=== PATIENT | male | born 1995 | race Caucasian/White ===

== ENCOUNTER 2018-04-13 00:52 | Inpatient (IN) | payer OTHER ==
[~2018-04-13] VITALS: Ht 170.2 cm; Wt 65.8 kg
--- NOTE | 2018-04-13 01:12 | ED GENERAL ADULT ---
History of Present Illness General Chief Complaint: Abdominal Pain/Flank Pain Stated Complaint: BIBA, ABD PAIN Source: patient, family Exam Limitations: no limitations Vital Signs & Intake/Output Vital Signs & Intake/Output Vital Signs Date Time Temp Pulse Resp B/P B/P Pulse O2 O2 Flow FiO2 Mean Ox Delivery Rate 04/13 0401 99.7 100 18 123/59 98 Room Air 04/13 0058 98.8 84 20 155/71 95 Room Air Allergies Coded Allergies: amoxicillin (UNKNOWN 04/13/18) Triage Note: BIBA EMS FROM HOME FOR 03/29 ABD PAIN. PT HAS HX OF CROHNS. PER EMS IT HAS BEEN INTERMITTENT SINCE YESTERDAY MORNING AND PT TOOK HIS MEDICAL MARIJUANA WITH NO RELIEF. PT VOMITED X3 PRIOR TO BEING IN EMS CARE. PT C/O 03/29 RLQ AND LLQ ABD PAIN AT THIS TIME. PT ADMITS TO NAUSEA AND VOMITING EARLIER BUT DENIES NAUSEA AT THIS TIME. PT STATES HE HAD A BOWEL MOVEMENT THURSDAY MORNING BUT IT WAS "HARD AND SMALL." PT DENIES ANY OTHER COMPLAINTS. Triage Nurses Notes Reviewed? yes HPI: 23-year-old man with past medical history of Crohn's disease diagnosed 1.5 years ago followed by forensic anthropologist Dr. Fuentes of [place] seen for evaluation of nausea, vomiting, diarrhea over the past 48 hours. Collateral information obtained from patient's father and other family member who report that he has been progressively worsening and appears to be in incredible pain. EMS was contacted and patient was brought to the [place] ED. Presently patient states that his abdomen is in moderate/severe pain and admits to associated fever, chills with some shortness of breath. He otherwise denies any chest pain. (Juan Jose Antonio MD) Past History Travel History Traveled to [place] past 21 day No Medical History Any Pertinent Medical History? see below for history Respiratory: asthma Gastrointestinal: Crohn's disease Surgical History Surgical History: none Psychosocial History What is your primary language Mexican Tobacco Use: Never used Family History Hx Contributory? No (Juan Jose Antonio MD) Review of Systems Review of Systems Constitutional: Reports: see HPI. (Juan Jose Antonio MD) Physical Exam Physical Exam General Appearance: well developed/nourished, no apparent distress, alert, awake , comfortable Comments: General - well developed, thin young man in moderate/severe distress HEENT - NCAT, PERRL, EOMI, anicteric sclera Neck- Supple, no JVD/HJR, no bruits, trachea midline Cardio - S1, S2 w/o murmurs/gallops/rubs; tachycardic Resp - Clear to auscultation bilaterally GI - Soft, severely tender with guarding and rigidity, bowel sounds faint Neuro - Awake and alert, CN II - XII grossly intact Extremities - No edema, pulses intact Skin-cool/clammy and diaphoretic Core Measures ACS in differential dx? No CVA/TIA Diagnosis: No Sepsis Present: No Sepsis Focused Exam Completed? No (Marisela NELSON,Juan Jose) Progress Differential Diagnoses I considered the following diagnoses in my evaluation of the patient: Crohn's flare, bacteremia, sepsis, peritonitis, bowel perforation Plan of Care: Orders Procedure Date/time Status Nothing by Mouth 04/13 B Active LACTIC ACID 04/13 0425 Active Weight 04/13 0406 Active Vital Signs 04/13 040 Active Teach/Educate 04/13 040 Active Pain Treatment and Response 04/13 040 Active Nutritional Intake, Monitor 04/13 0406 Active Isolation 04/13 0406 Active Intake & Output 04/13 0406 Active Patient Care Conference 04/13 0406 Active Activity/Ambulation 04/13 0406 Active Patient Data 04/13 0300 Active Code Status 04/13 0258 Active BLOOD CULTURE 04/13 0134 Active LACTIC ACID 04/13 0125 Complete COMPREHENSIVE METABOLIC PANEL 04/13 0125 Complete CBC WITHOUT DIFFERENTIAL 04/13 0125 Complete Intake & Output 04/13 0058 Active ED Holding Orders 04/13 UNK Active Admit to inpatient 04/13 UNK Active Vital Signs 04/13 UNK Active Current Medications Sig/Hina Start time Last Medication Dose Stop Time Status Admin Hydrocortisone 100 MG Q8 04/13 0600 AC Sodium Succinate (Solucortef) Laboratory Tests 04/13/18 0140: Anion Gap 11, Estimated GFR > 60, BUN/Creatinine Ratio 8.9, Glucose 121 H, Lactic Acid 1.2, Calcium 9.7, Total Bilirubin 0.4, AST 17, ALT 21, Alkaline Phosphatase 61, Total Protein 7.3, Albumin 4.4, Globulin 2.9, Albumin/Globulin Ratio 1.5, CBC w Diff MAN DIFF ORDERED, RBC 5.21, MCV 81.5, MCH 27.2, MCHC 33.4, RDW 14.4, MPV 8.5, Gran % 93.6 H, Lymphocytes % 3.5 L, Monocytes % 2.7, Eosinophils % 0.1, Basophils % 0.1, Absolute Granulocytes 16.3 H, Segmented Neutrophils 96 H, Band Neutrophils 2, Absolute Lymphocytes 0.6 L, Lymphocytes 1 L, Monocytes 1 L, Absolute Monocytes 0.5, Absolute Eosinophils 0, Absolute Basophils 0, Platelet Estimate ADEQUATE, Normochromic RBCs VERIFIED, Poikilocytosis 1+, Ovalocytes 1+, Fld Total RBCs Counted 100 Microbiology 04/132 BLOOD: Blood Culture - RECD 04/13 140 BLOOD: Blood Culture - RECD Initial ED EKG: none Comments: Young man with history of Crohn's disease recently diagnosed within the past 1.5 years previously well controlled on medical marijuana. He apparently was evaluated for biologic agents but was declined by his insurance company. Presently he is in severe distress with severe abdominal pain. Vital signs however are within normal limits. Physical examination demonstrates a young man with cool clammy and diaphoretic skin and a normal cardiopulmonary examination with a severely tender rigid abdomen with guarding. Labs are significant for an elevated WBC count to 17.4 with left shift and normal serum chemistry/lactic acid. CT abdomen/pelvis with IV contrast is ordered with results pending. Patient is medicated with intravenous fluids, antiemetics, and pain medications resulting in mild improvement of his symptoms. Patient's physical examination findings discussed with general surgeon Dr. Bryan Mckoy whose team will evaluate the patient. Clinically patient appears to have a Crohn's flare resulting in his nausea, vomiting, diarrhea and severe abdominal pain. Patient is empirically started on stress dose steroids. He may require intravenous antibiotics. He is being admitted to the general medicine floor for continued intravenous fluids, antiemetics, pain medications, steroids, probable antibiotics, general surgery evaluation, and gastroenterology consultation. (Juan Jose Antonio MD) Departure Departure Disposition: STILL A PATIENT Condition: Stable Referrals: Meche Villafana MD Departure Forms: Customer Survey General Discharge Information Admission Note Spoke With: Juan Jose Interiano MD Documentation of Exam: Documentation of any treatments & extenuating circumstances including Concerns Regarding Discharge (functional status, medication knowledge or non-compliance, living conditions, etc.) that warrant an admission rather than observation: * Intravenous fluids/steroids/probable antibiotic * Antiemetics * Pain medications * General surgery evaluation * Gastroenterology consultation (Juan Jose Antonio MD) Departure Clinical Impression Primary Impression: Crohn disease Qualifiers: Gastrointestinal tract location: unspecified location Digestive disease complication type: with intestinal obstruction Qualified Code: K50.912 - Crohn's disease, unspecified, with intestinal obstruction PA/OXYGEN EQUIPMENT AIDE Co-Sign Statement Statement: ED Attending supervision documentation- x I saw and evaluated the patient. I have also reviewed all the pertinent lab results and diagnostic results. I agree with the findings and the plan of care as documented in the PA's/OXYGEN EQUIPMENT AIDE's documentation. [] I have reviewed the ED Record and agree with the PA's/OXYGEN EQUIPMENT AIDE's documentation. [] Additions or exceptions (if any) to the PAs/OXYGEN EQUIPMENT AIDE's note and plan are summarized below: [] (Chucho NELSON,Ricardo) Critical Care Note Critical Care Note Critical Care Time: 30-74 min (Juan Jose Antonio MD)
[2018-04-13 01:50] LABS: ABSOLUTE BASOPHIL COUNT 0 /CUMM (0.0-0.2); ABSOLUTE EOSINOPHIL COUNT 0 /CUMM (0.0-0.7); ABSOLUTE GRANULOCYTE CT 16.3 /CUMM (1.4-6.5); ABSOLUTE LYMPH COUNT 0.6 /CUMM (1.2-3.4); ABSOLUTE MONOCYTE COUNT 0.5 /CUMM (0.10-0.60); BASOPHIL % 0.1 % (0.0-2.0); EOSINOPHIL % 0.1 % (0-5); GRANULOCYTE % 93.6 % (42.2-75.2); HEMATOCRIT 42.5 % (42-52); MEAN CORPUSCULAR HGB 27.2 PG (27.0-31.0); MEAN CORPUSCULAR HGB CONC 33.4 G/DL (33.0-37.0); MEAN CORPUSCULAR VOLUME 81.5 FL (80.0-94.0); MEAN PLATELET VOLUME 8.5 FL (7.4-10.4); PLATELET COUNT 324 /CUMM (130-400); RBC DISTRIBUTION WIDTH 14.4 % (11.5-14.5); RED BLOOD CELL CT 5.21 /CUMM (4.70-6.10); WHITE BLOOD CELL COUNT 17.4 /CUMM (4.8-10.8)
--- NOTE | 2018-04-13 03:22 | History & Physical ---
Ronn Estrella 04/13/18 0321: General Information and HPI MD Statement: I have seen and personally examined PETRA TILLEY and documented this H&P. The patient is a 23 year old M who presented with a patient stated chief complaint of [Abdominal pain]. Source of Information: patient Exam Limitations: no limitations History of Present Illness: 23-year-old male history of Crohn's disease presenting with abdominal pain in the right lower quadrant. The pain began Thursday night and continued to worsen through Thursday, and started radiating from the right of the right lower quadrant across the midline in the lower quadrants as well as towards the right upper quadrant. The pain is described as a constant dull pain, but is sharp with movement. The patient became nauseous Thursday night and vomited 3 times, nonbloody. He is also reporting chills and subjective fevermeasured at home to be 99.5 degrees. He denied bright red blood per rectum or diarrhea, but reports constipation, most recently passing a hard a hard pellet like stool Thursday, whereas he usually has 3-4 bowel movements per day. He denied chest pain, lightheadedness, dizziness, shortness of breath or recent trauma to the abdomen. The patient has never been hospitalized for Crohn's disease before, never had any surgical procedures, usually controls his flareups with medical marijuana, has tried steroids in the past with resultant migraines, and tried to be put on a biologic agent but his insurance denied it since he had not failed Humira yet. 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 His girlfriend a was present in the room , and she began vomiting herself after the history was taken. As stated, the patient smokes medical marijuana, but denies tobacco use, rarely drinks alcohol, and denies illicit drug use Allergies/Medications Allergies: Coded Allergies: amoxicillin (UNKNOWN 04/13/18) Past History Travel History Traveled to [place] past 21 day No Medical History Respiratory: asthma Gastrointestinal: Crohn's disease Surgical History Surgical History: none Review of Systems Review of Systems Constitutional: Reports: chills, fever. Denies: weakness. Cardiovascular: Reports: palpitations. Denies: chest pain, orthopena, peripheral edema. Respiratory: Denies: cough, orthopnea, short of breath. GI: Reports: abdominal pain, constipation, nausea, vomiting. Denies: diarrhea, melena, bloody stool. Genitourinary: Denies: dysuria, hematuria, pain. Exam & Diagnostic Data Last 24 Hrs of Vital Signs/I&O Vital Signs Date Time Temp Pulse Resp B/P B/P Pulse O2 O2 Flow FiO2 Mean Ox Delivery Rate 04/13 0601 99.3 04/13 0421 99.5 90 22 158/60 93 Room Air 04/13 0401 99.7 100 18 123/59 98 Room Air 04/13 0058 98.8 84 20 155/71 95 Room Air Intake & Output 04/13 0800 04/13 0000 04/12 1600 Intake Total 1150 Output Total Balance 1150 Intake, IV 1150 Intake, Oral 0 Patient 65.771 kg Weight Weight Bed scale Measurement Method Physical Exam General Appearance Alert, Oriented X3, Cooperative, No Acute Distress HEENT Atraumatic, EOMI Cardiovascular Regular Rate, Normal S1, Normal S2, No Murmurs Lungs Clear to Auscultation, Normal Air Movement Abdomen Bowel sounds hypoactive, Profoundly tender to palpation in the RLQ Extremities No Clubbing, No Cyanosis, No Edema, Normal Pulses Last 24 Hrs of Labs/Michael: Laboratory Tests 04/13/18 0140: Anion Gap 11, Estimated GFR > 60, BUN/Creatinine Ratio 8.9, Glucose 121 H, Lactic Acid 1.2, Calcium 9.7, Total Bilirubin 0.4, AST 17, ALT 21, Alkaline Phosphatase 61, Total Protein 7.3, Albumin 4.4, Globulin 2.9, Albumin/Globulin Ratio 1.5, CBC w Diff MAN DIFF ORDERED, RBC 5.21, MCV 81.5, MCH 27.2, MCHC 33.4, RDW 14.4, MPV 8.5, Gran % 93.6 H, Lymphocytes % 3.5 L, Monocytes % 2.7, Eosinophils % 0.1, Basophils % 0.1, Absolute Granulocytes 16.3 H, Segmented Neutrophils 96 H, Band Neutrophils 2, Absolute Lymphocytes 0.6 L, Lymphocytes 1 L, Monocytes 1 L, Absolute Monocytes 0.5, Absolute Eosinophils 0, Absolute Basophils 0, Platelet Estimate ADEQUATE, Normochromic RBCs VERIFIED, Poikilocytosis 1+, Ovalocytes 1+, Fld Total RBCs Counted 100 Microbiology 04/13 0514 STOOL: Stool Culture - COLB 04/13 222 BLOOD: Blood Culture - RECD 04/13 0140 BLOOD: Blood Culture - RECD Assessment/Plan Assessment: 23-year-old male with a history of Crohn's disease presenting with acute flare of Crohn's. Patient has a leukocytosis of 17.4 with corresponding left shift. Possibly from inflammation secondary to Crohn's versus infectious. CT Abd/Pelvis: Multifocal segments of wall thickening involving the small bowel, particularly the terminal ileum, in keeping with active inflammatory bowel disease. Loops of gas and fluid-filled small bowel in the midabdomen may reflect a partial mechanical obstruction in the setting of possible underlying fibrostenosis. Problems: 1. Acute flareup of Crohn's disease Plan: ceftriaxone and metronidazole Full code As Ranked By This Provider Problem List: 1. Crohn disease Qualifiers Gastrointestinal tract location: unspecified location Digestive disease complication type: with intestinal obstruction Qualified Code: K50.912 - Crohn's disease, unspecified, with intestinal obstruction Core Measures/Misc (04/05) Acute Coronary Syndrome ACS Diagnosis: No Congestive Heart Failure Congestive Heart Failure Diagnosis No Cerebrovascular Accident CVA/TIA Diagnosis: No VTE (View Protocol) VTE Risk Factors No risk factors No Mechanical VTE Prophylaxis d/t N/A MechProphylax Ordered No VTE Pharm Prophylaxis d/t LowRisk-No Interven Req'd Sepsis (View protocol) Sepsis Present: No If YES complete Sepsis Event Note If YES complete Sepsis Event Note Juan Jose Interiano MD 04/13/18 0502: Core Measures/Misc (04/05) Sepsis (View protocol) If YES complete Sepsis Event Note If YES complete Sepsis Event Note Attending MD Review Statement Attending Statement Attending MD Statement: examined this patient, discuss w/resident/PA/PLUSH DRESSER, agreed w/resident/PA/PLUSH DRESSER Attending Assessment/Plan: Patient is seen and examined independently by me. Care plan discussed with biomedical specialist and/or resident. I agree with the physical exam findings and plan of care as outlined above with the following changes and additions. 23 yo male with history of Crohn's diagnosed about 1.5 years ago presented with lower abdominal pain for 2 days. Patient states he had pain below umbilicus which radiates bilaterally and rectally. He has nausea with non bloody vomiting x3. He has no diarrhea. Last BM on 04/12 with small amount of non bloody firm stool. T max 99.5 at home. He has moderate to severe abdominal pain earlier in the ED and got Dilaudid 1 mg IV. On my abdominal exam, he has decreased bowel sound, soft, no distension, mild tenderness in RUQ/RLQ/LLQ (worse in RLQ) with no rebound or guarding. WBC 17.4. Lactic acid 1.2. CT abdomen and pelvis shows multifocal segments of wall thickening of small bowel and terminal ileum with partial SBO. Patient is admitted to inpatient to [facility] for acute exacerbation of Crohn's with partial SBO and terminal ileitis. NPO. IV hydration. Start solumedrol. IV antibiotic. Pain control. Check blood and stool cultures. Surgery consult. GI consult. Signed: MD KOLE Carter MD,Porsche 04/13/18 0534: Core Measures/Misc (04/05) Sepsis (View protocol) If YES complete Sepsis Event Note If YES complete Sepsis Event Note Resident Review Statement Resident Statement: examined this patient, discussed with internal controls manager, agreed with internal controls manager, reviewed EMR data (avail), amended to note Other Findings: Patient is an 23-year-old male with past medical history significant of Crohn's diagnosed 1-1/2 years ago currently following with Dr. Fuentes presenting with chief complaint of abdominal pain. Patient reports that on Thursday, April 11 he started experiencing significant lower abdominal pain which was not responding to medical marijuana. Reports that the next day he continued to have worsening lower abdominal pain which was unbearable and at approximately 9 PM on day of admission he had 3 episodes of nonbloody emesis. Patient reports that his abdominal pain is located below the umbilicus close to the right lower quadrant which radiates outwards. Describes it as a constant dull ache with occasional sharp shooting pain that worsens with movement. Patient rates the pain as worse and 9 out of 10 which improved with Dilaudid. Patient reports a one-day history of constipation with his last bowel movement the morning before admission. Describes stool as "hard palates". Denies bright red blood or melena. Describes the stool was dark brown/greenish color. Patient reports that he is normally regular and has multiple bowel movements throughout the day. Patient reports a fever of 99.5 along with chills and palpitations. Denies any chest pain, shortness breath, dizziness, lightheadedness, dysuria/hematuria. Patient reports that he was recently diagnosed with Crohn's. Denies any previous hospitalizations. Reports that he has had prednisone in the past however did not continue due to migraines. Patient's insurance recently denied Entyvio as he has not failed/attempted Humira. Past medical history: Childhood asthma, Crohn's Past surgical history: None Social history: Denies tobacco use, occasional alcohol use, uses marijuana, denies any illicit drug use, is in ninth grade[employer] grad[employer] and reports sick contacts Allergies: Amoxicillin- rash Medications: CBD, vitamin B, vitamin D, calcium, probiotic, multivitamin, cumin supplement On admission: Vitals: MAXIMUM TEMPERATURE 99.7, heart rate 84-100, respiration rate 18-22, blood pressure 158/60, saturating between 93-98% on room air Physical exam as above Labs: Significant for white count of 17.4 with 93.6% granulocytes, H&H 14.2 and 42.5, platelets 324, chemistry unremarkable except for a glucose of 121 Imaging: CT abdomen and pelvis with contrast shows multifocal segment of wall thickening involving the small bowel fistula site that terminal ileum with findings consistent for IVD. Loops of gas and fluid-filled small bowel and the abdomen may represent a partial mechanical obstruction in setting of possible underlying fibrous stenosis. Pelvic free fluid present. Bilateral scrotal hydroceles. Patient is a 23-year-old male with past medical history significant for Crohn's currently not on immunosuppressive therapy presenting this admission with findings consistent for Crohn's flare and also possible obstruction due to the Crohn's. Patient in the ED he received IV Dilaudid, IV Zofran, 1 L normal saline bolus. Problems: Crohn's flare Partial mechanical obstruction secondary to Crohn's Plan: Admit to general med Nothing by mouth with IV fluids Continue IV Solu-Medrol 20 mg 3 times a day Start IV antibiotics - IV Flagyl, prior to starting ceftriaxone please clarify severity of allergy to amoxicillin Obtain stool cultures Follow-up blood cultures Surgery consult that in the ED for SBO GI consult placed Pain control: With IV Tylenol and Dilaudid Code: Full code Diet: Nothing by mouth DVT prophylaxis: Alps only
--- NOTE | 2018-04-13 03:45 | CT SCAN REPORT ---
EXAMINATION: CT ABDOMEN AND PELVIS WITH CONTRAST CLINICAL INFORMATION: Crohn's flare COMPARISON: None TECHNIQUE: Multidetector volumetric imaging was performed of the abdomen and pelvis following IV administration of 95 mL of Optiray 320 intravenous contrast. Sagittal and coronal reformatted images were obtained on the technologist's workstation. DLP: 286 mGy-cm FINDINGS: LUNG BASES: The visualized lung bases are unremarkable. LIVER, GALLBLADDER, AND BILIARY TREE: The liver is normal in size, shape, and attenuation. No focal hepatic lesion or biliary ductal dilatation is present. The gallbladder is unremarkable with no evidence of radiopaque gallstones, gallbladder wall thickening, or obvious pericholecystic inflammatory changes. PANCREAS: No focal lesions. SPLEEN: Unremarkable. ADRENAL GLANDS: Unremarkable. KIDNEYS AND URETERS: 9 mm hypodensity in the right renal midpole is too small to characterize. An additional cortical based 4 mm hypodensity in the posterior left renal midpole is too small to characterize. No evidence of nephrolithiasis. No evidence of hydronephrosis. Bilateral kidneys are within normal limits for size and contour.. BLADDER: Unremarkable. GASTROINTESTINAL TRACT: There is a segment of wall thickening and mucosal hyperenhancement involving the terminal ileum. Mildly thickened loops of bowel are also seen in the left hemiabdomen, nonspecific in the setting of underdistention. There is fluid and gas-filled distention of multiple small bowel loops in the midabdomen with associated mucosal enhancement, though no significant wall thickening. The large bowel is relatively decompressed, containing stool. There is moderate free fluid within the pelvis. ABDOMINAL WALL: No significant hernia is appreciated. LYMPH NODES: Normal. VASCULAR: Unremarkable. PELVIC VISCERA: Pelvic free fluid noted, as detailed above. Bilateral hydroceles noted. OSSEOUS STRUCTURES: Mild irregularity involving the L1-L2 endplates. No significant degenerative changes involving the lumbar spine. IMPRESSION: Multifocal segments of wall thickening involving the small bowel, particularly the terminal ileum, in keeping with active inflammatory bowel disease. Loops of gas and fluid-filled small bowel in the midabdomen may reflect a partial mechanical obstruction in the setting of possible underlying fibrostenosis. Pelvic free fluid. Bilateral scrotal hydroceles.
[2018-04-13 04:21] VITALS: BP 158/60
--- NOTE | 2018-04-13 07:06 | Cons- General Surgery ---
General Information and HPI Consulting Request Date of Consult: 04/13/18 Requested By: Juan Jose Interiano MD History of Present Illness: This is a healthy 23-year-old male who presents to the medical service with Crohn's exacerbation. Patient is known to have Crohn's disease from prior workup. Approximately 1 year ago he was noted to be iron deficient for which endoscopic evaluation was undertaken. Colonoscopy findings were concerning for Crohn's disease, which was consists firmed with CT scan of the abdomen pelvis. Patient was arranged to undergo medical treatment by his adjunct history instructor. Patient elected to go to [facility] for second opinion. A different biologic medicine was arranged but not covered by his insurance. He declined medical treatment and has managed without treatment. The past 2 days prior to admission he experienced severe suprapubic and right lower quadrant progressive abdominal pain associated with nausea and profuse vomiting. Since being admitted to the hospital and treated for Crohn's flare, his symptoms have improved such that he can move around a little bit more easy. He denies any further nausea or vomiting but also denies bowel function. Allergies/Medications Allergies: Coded Allergies: amoxicillin (UNKNOWN 04/13/18) Current Medications: Current Medications Sig/Hina Start time Last Medication Dose Route Stop Time Status Admin Acetaminophen 1,000 MG Q6P PRN 04/13 0515 AC 04/13 IV 0808 Ceftriaxone Sodium 1,000 MG Q24H 04/13 1100 AC IV Ceftriaxone Sodium 1,000 MG DAILY 04/13 0900 CAN IV Ciprofloxacin 400 MG Q12 04/13 1030 DC Dextrose/Water 200 ML IV Dextrose/Sodium 1,000 ML Q13H 04/13 0715 AC 04/13 Chloride IV 0808 Dextrose/Water 1,000 ML .[id number] 04/13 0515 DC 04/13 IV 0552 Hydrocortisone 100 MG Q8 04/13 0600 CAN Sodium Succinate IV Hydromorphone HCl 0.5 MG Q4P PRN 04/13 0515 AC 04/13 IV 1142 Hydromorphone HCl 0 .STK-MED ONE 04/13 0247 DC .ROUTE Hydromorphone HCl 1 MG ONCE ONE 04/13 0230 DC 04/13 IV 04/13 0231 0230 Hydromorphone HCl 0 .STK-MED ONE 04/13 0153 DC .ROUTE Hydromorphone HCl 0.6 MG ONCE ONE 04/13 0145 DC 04/13 IV 04/13 0146 0155 Influenza Virus 0.5 ML ONCE ONE 04/13 09 DC Vaccine IM 04/13 09 Methylprednisolone 20 MG Q8 04/13 06 AC 04/13 IV 0546 Metronidazole 500 MG IQ8 04/13 0800 AC 04/13 N/A 1 UNIT IV 0808 Ondansetron HCl 0 .STK-MED ONE 04/13 0152 DC .ROUTE Ondansetron HCl 4 MG ONCE ONE 04/13 0145 DC 04/13 IV 04/13 0146 0155 Sodium Chloride 1,000 ML BOLUS ONE 04/13 014 DC 04/13 IV 04/13 0244 0155 Past History Medical History Blood Transfusion Hx: No Neurological: NONE EENT: NONE Cardiovascular: NONE Respiratory: asthma Gastrointestinal: Crohn's disease Hepatic: NONE Renal: NONE Musculoskeletal: NONE Psychiatric: NONE Endocrine: NONE Blood Disorders: NONE Cancer(s): 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 No exertional dyspnea. Abdominal pain per HPI. Nausea vomiting per HPI. No bowel function. No dysuria. Muscle skeletal negative remainder 12 points negative Exam & Diagnostic Data Vital Signs and I&O Vital Signs Date Time Temp Pulse Resp B/P B/P Pulse O2 O2 Flow FiO2 Mean Ox Delivery Rate 04/13 0601 99.3 04/13 0421 99.5 90 22 158/60 93 Room Air 04/13 0401 99.7 100 18 123/59 98 Room Air 04/13 0058 98.8 84 20 155/71 95 Room Air Intake & Output 04/13 0804/13 0000 04/12 1600 04/12 0804/12 0000 04/11 1600 Intake Total 1150 Output Total Balance 1150 Intake, IV 1150 Intake, Oral 0 Patient 145 lb Weight Weight Bed scale Measurement Method Physical Exam: General: He looks his stated age thin habitus no distress HEENT: Anicteric PERRLA EOMI Neck: Supple no adenopathy no JVD Chest: Normal respiratory excursion and effort. Nontender no crepitus Abdomen: Flat, tender suprapubic region with involuntary focal guarding. No hernia no mass Extremities: No cyanosis clubbing or edema Last 24 Hours of Labs: Laboratory Tests 04/13 0140 Chemistry Sodium (137 - 145 mmol/L) 139 Potassium (3.5 - 5.1 mmol/L) 4.5 Chloride (98 - 107 mmol/L) 100 Carbon Dioxide (22 - 30 mmol/L) 28 Anion Gap (5 - 16) 11 BUN (9 - 20 mg/dL) 8 L Creatinine (0.7 - 1.2 mg/dL) 0.9 Estimated GFR (>60 ml/min) > 60 BUN/Creatinine Ratio (7 - 25 %) 8.9 Glucose (65 - 99 mg/dL) 121 H Lactic Acid (0.7 - 2.1 mmol/L) 1.2 Calcium (8.4 - 10.2 mg/dL) 9.7 Total Bilirubin (0.2 - 1.3 mg/dL) 0.4 AST (17 - 59 U/L) 17 ALT (21 - 72 U/L) 21 Alkaline Phosphatase (< 127 U/L) 61 Total Protein (6.3 - 8.2 g/dL) 7.3 Albumin (3.5 - 5.0 g/dL) 4.4 Globulin (1.9 - 4.2 gm/dL) 2.9 Albumin/Globulin Ratio (1.1 - 2.2 %) 1.5 Hematology CBC w Diff MAN DIFF ORDERED WBC (4.8 - 10.8 /CUMM) 17.4 H RBC (4.70 - 6.10 /CUMM) 5.21 Hgb (14.0 - 18.0 G/DL) 14.2 Hct (42 - 52 %) 42.5 MCV (80.0 - 94.0 FL) 81.5 MCH (27.0 - 31.0 PG) 27.2 MCHC (33.0 - 37.0 G/DL) 33.4 RDW (11.5 - 14.5 %) 14.4 Plt Count (130 - 400 /CUMM) 324 MPV (7.4 - 10.4 FL) 8.5 Gran % (42.2 - 75.2 %) 93.6 H Lymphocytes % (20.5 - 51.1 %) 3.5 L Monocytes % (1.7 - 9.3 %) 2.7 Eosinophils % (0 - 5 %) 0.1 Basophils % (0.0 - 2.0 %) 0.1 Absolute Granulocytes (1.4 - 6.5 /CUMM) 16.3 H Segmented Neutrophils (42.2 - 75.2 %) 96 H Band Neutrophils (0.0 - 5.0 %) 2 Absolute Lymphocytes (1.2 - 3.4 /CUMM) 0.6 L Lymphocytes (20.5 - 51.1 %) 1 L Monocytes (1.7 - 9.3 %) 1 L Absolute Monocytes (0.10 - 0.60 /CUMM) 0.5 Absolute Eosinophils (0.0 - 0.7 /CUMM) 0 Absolute Basophils (0.0 - 0.2 /CUMM) 0 Platelet Estimate (ADEQUATE) ADEQUATE Normochromic RBCs VERIFIED Poikilocytosis 1+ Ovalocytes 1+ Other Body Source Fld Total RBCs Counted (%) 100 Imaging Results: CT scan images were personally reviewed. The findings show focal segment of terminal ileum with severe inflammatory changes. There is mild small bowel dilatation proximal to this. Dilated loops of bowel are without inflammatory changes. No free fluid no free air no hernia no mass Assessment/Plan Assessment/Plan This is a healthy 23-year-old male with Crohn's exacerbation. There is associated partial small bowel obstruction, likely related to luminal edema from his active inflammatory process. I do not feel that surgical intervention is necessary. Most often, these partial obstructive symptoms will resolve with medical management of his Crohn's disease. For now keep him nothing by mouth until he has return of bowel function. When that occurs she can be started on a liquid diet and progress as tolerated. I will defer management to gastroenterology. Problem List: 1. Crohn disease 2. SBO (small bowel obstruction) Copies To: Gina NELSON,Santhosh; Sergio Rice MD Consult Acknowledgment - Thank you for your consult request.
[2018-04-13 08:16] LABS: PTT 25 SEC (25-37)
[2018-04-13 08:30] LABS: ABSOLUTE BASOPHIL COUNT 0 /CUMM (0.0-0.2); ABSOLUTE EOSINOPHIL COUNT 0 /CUMM (0.0-0.7); ABSOLUTE GRANULOCYTE CT 20.7 /CUMM (1.4-6.5); ABSOLUTE LYMPH COUNT 0.3 /CUMM (1.2-3.4); ABSOLUTE MONOCYTE COUNT 0.5 /CUMM (0.10-0.60); BASOPHIL % 0 % (0.0-2.0); EOSINOPHIL % 0 % (0-5); GRANULOCYTE % 96.3 % (42.2-75.2); HEMATOCRIT 37.9 % (42-52); MEAN CORPUSCULAR HGB 27.5 PG (27.0-31.0); MEAN CORPUSCULAR HGB CONC 33.8 G/DL (33.0-37.0); MEAN CORPUSCULAR VOLUME 81.6 FL (80.0-94.0); PLATELET COUNT 276 /CUMM (130-400); RBC DISTRIBUTION WIDTH 14.2 % (11.5-14.5); RED BLOOD CELL CT 4.64 /CUMM (4.70-6.10); WHITE BLOOD CELL COUNT 21.5 /CUMM (4.8-10.8)
--- NOTE | 2018-04-13 08:30 | Cons- Gastroenterology ---
General Information and HPI Consulting Request Date of Consult: 04/13/18 Requested By: Marco Antonio Ruvalcaba MD Reason for Consult: Abdominal pain in a pt with a history of crohns disease. Abnormal ct scan consistent with a flare of crohns disease. Source of Information: patient Exam Limitations: no limitations History of Present Illness: Mr. Parker is a 23 year old male with a history of crohns disease who presented to last night with complaints of worsening abdominal pain associated with nausea and vomiting. He had been having some worsening abdominal pain over the past 2 days and he notes that last night he developed servere lower abdominal pain more severe from pain he has experienced prior. He had some bilious vomiting with the pain, but no hematemesis. He also reports that he has normal bowel movements without any rectal bleeding or diarrhea and he has not had any recent change in his bowel habits. He has been afebrile. He has been on budesonide in the past for his crohns, but he currently only takes medical marijuana. He apparently has been approved for humira, but he hasn't yet starting it noting that he wanted to be started on entyvio because of the side effect profile. He has also not been on systemic steroids in the past. In the ER he was hemodynamically stable and afebrile. He had a ct scan that showed bowel wall inflammation consistent with a flare of his crohns disease. He was admitted to the medical service and started on IV antibiotics and IV solumederol and has noted a marked improvement in his pain today. He has been kept NPO and has not had any further vomiting since being admitted. Allergies/Medications Allergies: Coded Allergies: Milk Containing Products (Mild, DIARRHEA 04/14/18) gluten (Mild, ABDOMINAL CRAMPING 04/14/18) amoxicillin (UNKNOWN 04/13/18) lactase (From DAIRY AID) (Mild, GI DISTRESS 04/14/18) Home Med List: Cholecalciferol (Vitamin D3) (Vitamin D) 1,000 UNIT TABLET 1 TAB PO DAILY VITAMIN SUPPORT (Reported) Cyanocobalamin (Vitamin B-12) 1,000 MCG TABLET 1 TAB PO DAILY VITAMIN SUPPORT (Reported) Ferrous Sulfate 325 MG (65 MG IRON) TABLET 1 TAB PO DAILY IRON, VITAMIN ( Reported) [MEDICAL MARIJUANA] (Reported) Prednisone 10 MG TABLET 5 TAB PO DAILY PRN CROHN'S DISEASE 5 PILLS FOR 7 DAYS 4 PILLS FOR 7 DAYS 3 PILLS FOR 7 DAYS 2 PILLS FOR 7 DAYS 1 PILL FOR 7 DAYS Current Medications: Current Medications Sig/Hina Start time Last Medication Dose Route Stop Time Status Admin Acetaminophen 1,000 MG Q6P PRN 04/13 0515 AC 04/13 IV 0808 Ceftriaxone Sodium 1,000 MG DAILY 04/13 900 CAN IV Dextrose/Sodium 1,000 ML Q13H 04/13 0715 AC 04/13 Chloride IV 08 Dextrose/Water 1,000 ML .[id number] 04/13 0515 DC 04/13 IV 0552 Hydrocortisone 100 MG Q8 04/13 600 CAN Sodium Succinate IV Hydromorphone HCl 0.5 MG Q4P PRN 04/13 0515 AC 04/13 IV 0545 Hydromorphone HCl 0 .STK-MED ONE 04/13 0247 DC .ROUTE Hydromorphone HCl 1 MG ONCE ONE 04/13 0230 DC 04/13 IV 04/13 0231 0230 Hydromorphone HCl 0 .STK-MED ONE 04/13 0153 DC .ROUTE Hydromorphone HCl 0.6 MG ONCE ONE 04/13 0145 DC 04/13 IV 04/13 0146 0155 Influenza Virus 0.5 ML ONCE ONE 04/13 900 AC Vaccine IM 04/13 09 Methylprednisolone 20 MG Q8 04/13 06 AC 04/13 IV 0546 Metronidazole 500 MG IQ8 04/13 08 AC 04/13 N/A 1 UNIT IV 08 Ondansetron HCl 0 .STK-MED ONE 04/13 0152 DC .ROUTE Ondansetron HCl 4 MG ONCE ONE 04/13 0145 DC 04/13 IV 04/13 0146 0155 Sodium Chloride 1,000 ML BOLUS ONE 04/13 0145 DC 04/13 IV 04/13 0244 0155 Past History Travel History Traveled to [place] past 21 day No Medical History Blood Transfusion Hx: No Neurological: NONE EENT: NONE Cardiovascular: NONE Respiratory: asthma Gastrointestinal: Crohn's disease Hepatic: NONE Renal: NONE Musculoskeletal: NONE Psychiatric: NONE Endocrine: NONE Blood Disorders: NONE Cancer(s): 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 Home Services at Home: None Smoking Status: Never Smoked Review of Systems Review of Systems Constitutional: Denies: fever, malaise, weakness, unexplained weight loss. EENTM: Reports: visual changes, ear redness. Cardiovascular: Denies: no symptoms. Respiratory: Denies: no symptoms. GI: Reports: see HPI. Genitourinary: Denies: no symptoms. Musculoskeletal: Denies: no symptoms, joint pain, joint swelling. Skin: Denies: no symptoms, rash. Neurological/Psychological: Denies: no symptoms. Hematologic/Endocrine: Denies: no symptoms. Immunologic/Allergic: Denies: no symptoms. All Other Systems: Reviewed and Negative Exam & Diagnostic Data Vital Signs and I&O Vital Signs Date Time Temp Pulse Resp B/P B/P Pulse O2 O2 Flow FiO2 Mean Ox Delivery Rate 04/13 0601 99.3 04/13 0421 99.5 90 22 158/60 93 Room Air 04/13 0401 99.7 100 18 123/59 98 Room Air 04/13 0058 98.8 84 20 155/71 95 Room Air Intake & Output 04/13 1600 04/13 0400 04/12 1600 04/12 0400 04/11 1600 04/11 0400 Intake Total 150 1000 Output Total Balance 150 1000 Intake, IV 150 1000 Intake, Oral 0 Patient 145 lb 145 lb Weight Weight Bed scale Reported by Patient Measurement Method Physical Exam General Appearance: well developed/nourished, no apparent distress, alert, comfortable Head: atraumatic, normal appearance Eyes: Bilateral: normal appearance. Ears, Nose, Throat: normal pharynx, normal ENT inspection, hearing grossly normal Neck: normal inspection, supple, full range of motion Respiratory: normal breath sounds, chest non-tender, no respiratory distress, quiet respiration Cardiovascular: regular rate/rhythm Gastrointestinal: normal bowel sounds, soft, tenderness, no peritoneal signs Rectal: deferred Back: normal inspection, normal range of motion Extremities: normal inspection, normal range of motion, no edema Neurologic/Psych: no motor/sensory deficits, awake, alert, oriented x 3 Skin: intact, normal color, warm/dry Results Pertinent Lab Results: Laboratory Tests 04/13 04/13 0650 0140 Chemistry Sodium (137 - 145 mmol/L) 139 Potassium (3.5 - 5.1 mmol/L) 4.5 Chloride (98 - 107 mmol/L) 100 Carbon Dioxide (22 - 30 mmol/L) 28 Anion Gap (5 - 16) 11 BUN (9 - 20 mg/dL) 8 L Creatinine (0.7 - 1.2 mg/dL) 0.9 Estimated GFR (>60 ml/min) > 60 BUN/Creatinine Ratio (7 - 25 %) 8.9 Glucose (65 - 99 mg/dL) 121 H Lactic Acid (0.7 - 2.1 mmol/L) Pending 1.2 Calcium (8.4 - 10.2 mg/dL) 9.7 Total Bilirubin (0.2 - 1.3 mg/dL) 0.4 AST (17 - 59 U/L) 17 ALT (21 - 72 U/L) 21 Alkaline Phosphatase (< 127 U/L) 61 Total Protein (6.3 - 8.2 g/dL) 7.3 Albumin (3.5 - 5.0 g/dL) 4.4 Globulin (1.9 - 4.2 gm/dL) 2.9 Albumin/Globulin Ratio (1.1 - 2.2 %) 1.5 Coagulation PT (9.4 - 12.5 SEC) 16.0 H INR (0.90 - 1.17) 1.46 H APTT (25 - 37 SEC) 25 Hematology CBC w Diff Pending MAN DIFF ORDERED WBC (4.8 - 10.8 /CUMM) Pending 17.4 H RBC (4.70 - 6.10 /CUMM) Pending 5.21 Hgb (14.0 - 18.0 G/DL) Pending 14.2 Hct (42 - 52 %) Pending 42.5 MCV (80.0 - 94.0 FL) Pending 81.5 MCH (27.0 - 31.0 PG) Pending 27.2 MCHC (33.0 - 37.0 G/DL) Pending 33.4 RDW (11.5 - 14.5 %) Pending 14.4 Plt Count (130 - 400 /CUMM) Pending 324 MPV (7.4 - 10.4 FL) Pending 8.5 Gran % (42.2 - 75.2 %) 93.6 H Lymphocytes % (20.5 - 51.1 %) 3.5 L Monocytes % (1.7 - 9.3 %) 2.7 Eosinophils % (0 - 5 %) 0.1 Basophils % (0.0 - 2.0 %) 0.1 Absolute Granulocytes (1.4 - 6.5 /CUMM) 16.3 H Segmented Neutrophils (42.2 - 75.2 %) 96 H Band Neutrophils (0.0 - 5.0 %) 2 Absolute Lymphocytes (1.2 - 3.4 /CUMM) 0.6 L Lymphocytes (20.5 - 51.1 %) 1 L Monocytes (1.7 - 9.3 %) 1 L Absolute Monocytes (0.10 - 0.60 /CUMM) 0.5 Absolute Eosinophils (0.0 - 0.7 /CUMM) 0 Absolute Basophils (0.0 - 0.2 /CUMM) 0 Platelet Estimate (ADEQUATE) ADEQUATE Normochromic RBCs VERIFIED Poikilocytosis 1+ Ovalocytes 1+ Other Body Source Fld Total RBCs Counted (%) 100 Imaging/Other Studies: SERVICE DATE: 04/13/18 EXAM TYPE: CAT - CT ABD & PELVIS W IV CONTRAST EXAMINATION: CT ABDOMEN AND PELVIS WITH CONTRAST CLINICAL INFORMATION: Crohn's flare COMPARISON: None TECHNIQUE: Multidetector volumetric imaging was performed of the abdomen and pelvis following IV administration of 95 mL of Optiray 320 intravenous contrast. Sagittal and coronal reformatted images were obtained on the technologist's workstation. DLP: 286 mGy-cm FINDINGS: LUNG BASES: The visualized lung bases are unremarkable. LIVER, GALLBLADDER, AND BILIARY TREE: The liver is normal in size, shape, and attenuation. No focal hepatic lesion or biliary ductal dilatation is present. The gallbladder is unremarkable with no evidence of radiopaque gallstones, gallbladder wall thickening, or obvious pericholecystic inflammatory changes. PANCREAS: No focal lesions. SPLEEN: Unremarkable. ADRENAL GLANDS: Unremarkable. KIDNEYS AND URETERS: 9 mm hypodensity in the right renal midpole is too small to characterize. An additional cortical based 4 mm hypodensity in the posterior left renal midpole is too small to characterize. No evidence of nephrolithiasis. No evidence of hydronephrosis. Bilateral kidneys are within normal limits for size and contour.. BLADDER: Unremarkable. GASTROINTESTINAL TRACT: There is a segment of wall thickening and mucosal hyperenhancement involving the terminal ileum. Mildly thickened loops of bowel are also seen in the left hemiabdomen, nonspecific in the setting of underdistention. There is fluid and gas-filled distention of multiple small bowel loops in the midabdomen with associated mucosal enhancement, though no significant wall thickening. The large bowel is relatively decompressed, containing stool. There is moderate free fluid within the pelvis. ABDOMINAL WALL: No significant hernia is appreciated. LYMPH NODES: Normal. VASCULAR: Unremarkable. PELVIC VISCERA: Pelvic free fluid noted, as detailed above. Bilateral hydroceles noted. OSSEOUS STRUCTURES: Mild irregularity involving the L1-L2 endplates. No significant degenerative changes involving the lumbar spine. IMPRESSION: Multifocal segments of wall thickening involving the small bowel, particularly the terminal ileum, in keeping with active inflammatory bowel disease. Loops of gas and fluid-filled small bowel in the midabdomen may reflect a partial mechanical obstruction in the setting of possible underlying fibrostenosis. Pelvic free fluid. Bilateral scrotal hydroceles. Assessment/Plan Assessment/Recommendations: Assessment: Mr. Parker is a 23 year old male with small bowel crohns disease currently admitted with a flare as evidenced by his ct scan which shows ileal thickening. He may have had a partial small bowel obstruction from worsening fibrostenotic disease perhaps from food getting caught. He has had some symptomatic improvement with IV steroids and I doubt that surgical intervention will be necessary. He apparently has been approved for humira which I have recommended at this point he should start otherwise it is possible his disease will potentially progress to a complete obstruction and this can be pursued as an outpatient with his primary gastroenterologsit. I would recommend keeping him on IV steroids for the next 24-36 hours and if he continues to do well hopefully his diet can be advnaced and he can be transitioned to oral prednisone and discharged home shortly. Recommendations: 1. Continue IV solumederol at current dose and will reassess in the am. 2. If his pain continues to improve would consider advancing to a clear liquid diet later tonight or in the am. 3. Analgesia and anti-emetics as needed. 4. Would observe off of antibiotics. 5. Follow up cultures. 6. 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 7. Follow lytes and replete as needed. I will continue to follow this patient and make further recommendations based on his clinical course and results of repeat blood work. Problem List: 1. Crohn disease 2. SBO (small bowel obstruction) Copies To: Gina NELSON,Santhosh; Dwayne NELSON,Sergio Consult Acknowledgment - Thank you for your consult request.
[2018-04-13] MEDS ORDERED: VITAMIN B-121000 MC3 PO (14:26)
[2018-04-13] MEDS ORDERED: VITAMIN D1000 UNIT PO (14:26)
[2018-04-13] MEDS ORDERED: FERROUS SULFAT325 M3 PO (14:27)
[2018-04-13] MEDS ORDERED: MEDICAL MARIJUANA (14:28)
[2018-04-13 23:04] VITALS: BP 110/60
--- NOTE | 2018-04-14 05:09 | PN- Housestaff ---
Ronn Estrella 04/14/18 0509: Subjective Follow-up For: Crohn's disease flare Review of Systems Constitutional: Denies: chills, fever, weakness. Gastrointestinal: Reports: abdominal pain, diarrhea (x1 early this morning). Denies: bloating, nausea, bloody stool, vomiting. Objective Last 24 Hrs of Vital Signs/I&O Vital Signs Date Time Temp Pulse Resp B/P B/P Pulse O2 O2 Flow FiO2 Mean Ox Delivery Rate 04/14 07 97.9 87 20 148/62 99 04/13 2304 98.7 55 20 110/60 97 Room Air Intake & Output 04/14 1600 04/14 0800 04/14 0000 Intake Total 900 765 Output Total Balance 900 765 Intake, IV 600 525 Intake, Oral 300 240 Number 1 Bowel Movements Physical Exam General Appearance: Alert, Oriented X3, Cooperative, No Acute Distress Abdomen: Normal Bowel Sounds, Soft, No Tenderness Current Medications: Current Medications Sig/Hina Start time Last Medication Dose Route Stop Time Status Admin Acetaminophen 325 MG ONCE ONE 04/135 DC 04/13 PO 04/13 214 2209 Acetaminophen 1,000 MG Q6P PRN 04/13 0515 04/13 IV 1724 Ceftriaxone Sodium 1,000 MG Q24H 04/13 1100 DC 04/13 IV 1402 Dextrose/Sodium 1,000 ML Q13H 04/13 0715 04/13 Chloride IV 2337 Hydromorphone HCl 0.5 MG Q4P PRN 04/13 0515 AC 04/13 IV 1816 Ibuprofen 400 MG ONCE ONE 04/13 2000 CAN PO 04/13 2001 Ketorolac 15 MG Q6 PRN 04/13 1615 04/13 Tromethamine IV 1643 Ketorolac 30 MG ONCE ONE 04/13 1345 DC 04/13 Tromethamine IV 04/13 1346 1359 Melatonin 5 MG AT BEDTIME 04/13 2100 04/13 PO 2209 Methylprednisolone 20 MG Q8 04/13 0600 NH 04/14 IV 0551 Metronidazole 500 MG IQ8 04/13 0800 NH 04/14 N/A 1 UNIT IV 0821 Ondansetron HCl 4 MG Q6P PRN 04/13 1400 AC 04/13 IV 1358 Patient Medication 1 ED ONE ONE 04/14 1145 DC Teaching ED 04/14 1146 Prednisone 60 MG DAILY 04/14 1144 AC PO Last 24 Hrs of Lab/Michael Results Last 24 Hrs of Labs/Mics: Laboratory Tests 04/14/18 0630: Anion Gap 12, Estimated GFR > 60, BUN/Creatinine Ratio 21.3, PT 16.7 H, INR 1.53 H, APTT 27, CBC w Diff NO MAN DIFF REQ, RBC 4.51 L, MCV 82.0, MCH 27.4, MCHC 33.5, RDW 14.2, MPV 9.2, Gran % 94.1 H, Lymphocytes % 2.5 L, Monocytes % 3.4, Eosinophils % 0, Basophils % 0, Absolute Granulocytes 16.0 H, Absolute Lymphocytes 0.4 L, Absolute Monocytes 0.6, Absolute Eosinophils 0, Absolute Basophils 0 04/13/18 1414: Urine Color YEL, Urine Clarity CLEAR, Urine pH 7.5, Ur Specific [place] 1.010, Urine Protein NEG, Urine Ketones NEG, Urine Nitrite NEG, Urine Bilirubin NEG, Urine Urobilinogen 0.2, Ur Leukocyte Esterase NEG, Ur Microscopic EXAM NOT REQUIRED, Urine Hemoglobin NEG, Urine Glucose NEG Microbiology 04/13 1716 STOOL: Stool Culture - RES Assessment/Plan Assessment: 23-year-old male with a history of Crohn's disease presenting with acute flare of Crohn's. Patient has a leukocytosis of 21.5 yesterday, 17.0 today with corresponding left shift. Possibly from inflammation secondary to Crohn's versus infectious. [facility] notified the team yesterday of a potentially developing phlegmon around the sigmoid colon on the intial CT Abd/Pelvis. Will continue to monitor for signs of infection. Problems: 1. Acute flareup of Crohn's disease 2. Possible SBO on CT, resolving with steroids Plan: Full code Problem List: 1. Crohn disease Pain Ratin Pain Location: LLQ Pain Goal: Pain 4 or less Pain Plan: per pathway Tomorrow's Labs & Rationales: cbc JordonDhaval lindertara 04/14/18 1100: Attending MD Review Statement Attending Statement Attending MD Statement: examined this patient, discuss w/resident/PA/LAUNDERER HAND, agreed w/resident/PA/LAUNDERER HAND, discussed with family, reviewed EMR data (avail), discussed with nursing, discussed with case mgmt, reviewed images, amended to note Attending Assessment/Plan: 23 o/m with diagnosied crohn disease past year with established GI care at [place] with Dr Fuentes comes with acute excaerbation of crohn disease with possible small bowel obstrcution with marked imporvement on steorids. Patient is tolerating his clear liquids this am. Advance diet as tolerated. Follow GI and surgery recommendations which recommend no acute intervention. Anticipate dsicharge in next 24-48 hrs
--- NOTE | 2018-04-14 05:59 | Patient Discharge Instructions ---
Discharge Instructions General Discharge Information You were seen/treated for: Crohn's disease flare-up Watch for these problems: With severe pain after eating, constipation, blood in stool, nausea or vomiting, please go to be seen at your nearest emergency department Special Instructions: Please follow-up with Dr. Fuentes, your summer counselor in 1-2 weeks and discuss Humira Diet Continue normal diet: Yes Recommended Diet: Low Residue Activity Full Activity/No Limits: No Activity Self Limited: Yes Acute Coronary Syndrome Inclusion Criteria At DC or during hospital stay patient has or had the following: ACS DIAGNOSIS No Discharge Core Measures Meds if any: Prescribed or Continued at Discharge Meds if any: NOT Prescribed or Continued at Discharge Congestive Heart Failure Inclusion Criteria At DC or during hospital stay patient has or had the following: CHF DIAGNOSIS No Discharge Core Measures Meds if any: Prescribed or Continued at Discharge Meds if any: NOT Prescribed or Continued at Discharge Cerebrovascular accident Inclusion Criteria At DC or during hospital stay patient has or had the following: CVA/TIA Diagnosis No Discharge Core Measures Meds if any: Prescribed or Continued at Discharge Meds if any: NOT Prescribed or Continued at Discharge Venous thromboembolism Inclusion Criteria VTE Diagnosis No VTE Type NONE VTE Confirmed by (Test) NONE Discharge Core Measures - Per Current guidelines, there needs to be overlap - treatment for the first 5 days of Warfarin therapy. - If discharged on Warfarin prior to 5 days of - overlap therapy, the patient will need to be - assessed for post discharge needs including - *Post discharge parental anticoagulation - *Warfarin and/or parental anticoagulation education - *Follow up date to check INR post discharge At least 5 days overlap therapy as Inpatient No Meds if any: Prescribed or Continued at Discharge Note: Overlap Therapy is Warfarin and Anticoagulant Meds if any: NOT Prescribed or Continued at Discharge
[2018-04-14 07:05] VITALS: BP 148/62
[2018-04-14 07:56] LABS: ABSOLUTE BASOPHIL COUNT 0 /CUMM (0.0-0.2); ABSOLUTE EOSINOPHIL COUNT 0 /CUMM (0.0-0.7); ABSOLUTE LYMPH COUNT 0.4 /CUMM (1.2-3.4); ABSOLUTE MONOCYTE COUNT 0.6 /CUMM (0.10-0.60); BASOPHIL % 0 % (0.0-2.0); EOSINOPHIL % 0 % (0-5); HEMATOCRIT 36.9 % (42-52); MEAN CORPUSCULAR HGB 27.4 PG (27.0-31.0); MEAN CORPUSCULAR HGB CONC 33.5 G/DL (33.0-37.0); MEAN PLATELET VOLUME 9.2 FL (7.4-10.4); PLATELET COUNT 276 /CUMM (130-400); RBC DISTRIBUTION WIDTH 14.2 % (11.5-14.5); RED BLOOD CELL CT 4.51 /CUMM (4.70-6.10)
[2018-04-14 08:38] LABS: PT 16.7 SEC (9.4-12.5); PTT 27 SEC (25-37)
[2018-04-14 08:44] LABS: GRANULOCYTE % 94.1 % (42.2-75.2)
--- NOTE | 2018-04-14 09:45 | PN- Gastroenterology ---
Assessment/Plan GI Assessment/Recommendations: Assessment: Mr. Parker is a 23 year old male admitted with a crohns flare currently markedly improved after several doses of IV solumederol. He is now tolerating a liquid diet and his pain is improved and he is without any vomiting since being admitted. He is also afebrile and his abdominal exam has improved as well. Recommendations: 1. Would give am solumederol dose and then change to PO Prednisone 60 mg daily for now. 2. Advance to a low residue diet as tolerated. 3. Analgesia and anti-emetics as needed. 4. Would observe off of antibiotics. 5. Follow lytes and replete as needed. 5. If pt continues to improve would give consideration to discharge him home in 24-36 hours on a prednisone taper (decreasing by 10 mg every week) and to start humira as an outpatient with his primary manager sales support Dr. Fuentes in [place]. I will continue to follow this patient and make further recommendations based on her clinical course and results of repeat blood work. Subjective Subjective: pt continues to do well and is tolerating a liquid diet. no further vomiting and abdominal pain is markedly improved. no diarrhea or rectal bleeding. Objective Vital Signs and I&Os Vital Signs Date Time Temp Pulse Resp B/P B/P Pulse O2 O2 Flow FiO2 Mean Ox Delivery Rate 04/14 0705 97.9 87 20 148/62 99 04/13 2304 98.7 55 20 110/60 97 Room Air Intake & Output 04/14 1600 04/14 0400 04/13 1600 04/13 0400 04/12 1600 04/12 0400 Intake Total 900 039 141 7595 Output Total 800 Balance 900 765 -50 1000 Intake, IV 600 460 427 4588 Intake, Oral 300 240 0 0 Number 1 Bowel Movements Output, Urine 800 Patient 145 lb 145 lb Weight Weight Bed scale Reported by Patient Measurement Method Physical Exam General Appearance: well developed/nourished, no apparent distress, alert, awake , comfortable Head: atraumatic, normal appearance Neck: normal inspection, supple, full range of motion Respiratory: normal breath sounds, chest non-tender, no respiratory distress Cardiovascular: regular rate/rhythm Abdomen: normal bowel sounds, soft, non-tender Back: normal inspection Skin: intact, normal color, warm/dry Current Medications: Current Medications Sig/Hina Start time Last Medication Dose Route Stop Time Status Admin Acetaminophen 325 MG ONCE ONE 04/13 2145 DC 04/13 PO 04/13 2146 2209 Acetaminophen 1,000 MG Q6P PRN 04/13 0515 AC 04/13 IV 1724 Ceftriaxone Sodium 1,000 MG Q24H 04/13 1100 AC 04/13 IV 1402 Ciprofloxacin 400 MG Q12 04/13 1030 DC Dextrose/Water 200 ML IV Dextrose/Sodium 1,000 ML Q13H 04/13 0715 AC 04/13 Chloride IV 2337 Hydromorphone HCl 0.5 MG Q4P PRN 04/13 0515 AC 04/13 IV 1816 Ibuprofen 400 MG ONCE ONE 04/13 2000 CAN PO 04/13 2001 Ketorolac 15 MG Q6 PRN 04/13 1615 AC 04/13 Tromethamine IV 1643 Ketorolac 30 MG ONCE ONE 04/13 1345 DC 04/13 Tromethamine IV 04/13 1346 1359 Melatonin 5 MG AT BEDTIME 04/13 2100 AC 04/13 PO 2209 Methylprednisolone 20 MG Q8 04/13 0600 AC 04/14 IV 0551 Metronidazole 500 MG IQ8 04/13 0800 AC 04/14 N/A 1 UNIT IV 0821 Ondansetron HCl 4 MG Q6P PRN 04/13 1400 AC 04/13 IV 1358 Results Pertinent Lab Results: Laboratory Tests 04/14 04/13 0630 1414 Chemistry Sodium (137 - 145 mmol/L) 139 Potassium (3.5 - 5.1 mmol/L) 4.5 Chloride (98 - 107 mmol/L) 105 Carbon Dioxide (22 - 30 mmol/L) 22 Anion Gap (5 - 16) 12 BUN (9 - 20 mg/dL) 17 Creatinine (0.7 - 1.2 mg/dL) 0.8 Estimated GFR (>60 ml/min) > 60 BUN/Creatinine Ratio (7 - 25 %) 21.3 Coagulation PT (9.4 - 12.5 SEC) 16.7 H INR (0.90 - 1.17) 1.53 H APTT (25 - 37 SEC) 27 Hematology CBC w Diff NO MAN DIFF REQ WBC (4.8 - 10.8 /CUMM) 17.0 H RBC (4.70 - 6.10 /CUMM) 4.51 L Hgb (14.0 - 18.0 G/DL) 12.4 L Hct (42 - 52 %) 36.9 L MCV (80.0 - 94.0 FL) 82.0 MCH (27.0 - 31.0 PG) 27.4 MCHC (33.0 - 37.0 G/DL) 33.5 RDW (11.5 - 14.5 %) 14.2 Plt Count (130 - 400 /CUMM) 276 MPV (7.4 - 10.4 FL) 9.2 Gran % (42.2 - 75.2 %) 94.1 H Lymphocytes % (20.5 - 51.1 %) 2.5 L Monocytes % (1.7 - 9.3 %) 3.4 Eosinophils % (0 - 5 %) 0 Basophils % (0.0 - 2.0 %) 0 Absolute Granulocytes (1.4 - 6.5 /CUMM) 16.0 H Absolute Lymphocytes (1.2 - 3.4 /CUMM) 0.4 L Absolute Monocytes (0.10 - 0.60 /CUMM) 0.6 Absolute Eosinophils (0.0 - 0.7 /CUMM) 0 Absolute Basophils (0.0 - 0.2 /CUMM) 0 Urines Urine Color (YEL,AMB,STR) YEL Urine Clarity (CLEAR) CLEAR Urine pH (5.0 - 8.0) 7.5 Ur Specific [place] (1.001 - 1.035) 1.010 Urine Protein (NEG,<30 MG/DL) NEG Urine Ketones (NEG) NEG Urine Nitrite (NEG) NEG Urine Bilirubin (NEG) NEG Urine Urobilinogen (0.1 - 1.0 EU/dl) 0.2 Ur Leukocyte Esterase (NEG) NEG Ur Microscopic EXAM NOT REQUIRED Urine Hemoglobin (NEG) NEG Urine Glucose (N MG/DL) NEG 04/13 04/13 0650 0140 Chemistry Sodium (137 - 145 mmol/L) 139 Potassium (3.5 - 5.1 mmol/L) 4.5 Chloride (98 - 107 mmol/L) 100 Carbon Dioxide (22 - 30 mmol/L) 28 Anion Gap (5 - 16) 11 BUN (9 - 20 mg/dL) 8 L Creatinine (0.7 - 1.2 mg/dL) 0.9 Estimated GFR (>60 ml/min) > 60 BUN/Creatinine Ratio (7 - 25 %) 8.9 Glucose (65 - 99 mg/dL) 121 H Lactic Acid (0.7 - 2.1 mmol/L) 1.2 1.2 Calcium (8.4 - 10.2 mg/dL) 9.7 Total Bilirubin (0.2 - 1.3 mg/dL) 0.4 AST (17 - 59 U/L) 17 ALT (21 - 72 U/L) 21 Alkaline Phosphatase (< 127 U/L) 61 Total Protein (6.3 - 8.2 g/dL) 7.3 Albumin (3.5 - 5.0 g/dL) 4.4 Globulin (1.9 - 4.2 gm/dL) 2.9 Albumin/Globulin Ratio (1.1 - 2.2 %) 1.5 Coagulation PT (9.4 - 12.5 SEC) 16.0 H INR (0.90 - 1.17) 1.46 H APTT (25 - 37 SEC) 25 Hematology CBC w Diff MAN DIFF ORDERED MAN DIFF ORDERED WBC (4.8 - 10.8 /CUMM) 21.5 H 17.4 H RBC (4.70 - 6.10 /CUMM) 4.64 L 5.21 Hgb (14.0 - 18.0 G/DL) 12.8 L 14.2 Hct (42 - 52 %) 37.9 L 42.5 MCV (80.0 - 94.0 FL) 81.6 81.5 MCH (27.0 - 31.0 PG) 27.5 27.2 MCHC (33.0 - 37.0 G/DL) 33.8 33.4 RDW (11.5 - 14.5 %) 14.2 14.4 Plt Count (130 - 400 /CUMM) 276 324 MPV (7.4 - 10.4 FL) 9.0 8.5 Gran % (42.2 - 75.2 %) 96.3 H 93.6 H Lymphocytes % (20.5 - 51.1 %) 1.4 L 3.5 L Monocytes % (1.7 - 9.3 %) 2.3 2.7 Eosinophils % (0 - 5 %) 0 0.1 Basophils % (0.0 - 2.0 %) 0 0.1 Absolute Granulocytes (1.4 - 6.5 /CUMM) 20.7 H 16.3 H Segmented Neutrophils (42.2 - 75.2 %) 80 H 96 H Band Neutrophils (0.0 - 5.0 %) 14 H 2 Absolute Lymphocytes (1.2 - 3.4 /CUMM) 0.3 L 0.6 L Lymphocytes (20.5 - 51.1 %) 3 L 1 L Monocytes (1.7 - 9.3 %) 3 1 L Absolute Monocytes (0.10 - 0.60 /CUMM) 0.5 0.5 Absolute Eosinophils (0.0 - 0.7 /CUMM) 0 0 Absolute Basophils (0.0 - 0.2 /CUMM) 0 0 Platelet Estimate (ADEQUATE) ADEQUATE ADEQUATE Normocytic RBCs VERIFIED Normochromic RBCs VERIFIED VERIFIED Poikilocytosis 1+ Ovalocytes 1+ Other Body Source Fld Total RBCs Counted (%) 100
[2018-04-14 14:15] VITALS: BP 120/70
[2018-04-14 22:45] VITALS: BP 140/70
--- NOTE | 2018-04-15 05:17 | PN- Housestaff ---
Ronn Estrella 04/15/18 0516: Subjective Follow-up For: Crohn's disease flare Subjective: Patient seen resting comfortably in bed. He reports that overnight he had 2 bowel movements, soft but not diarrhea like and without blood in the stool. He tolerated regular diet last night for dinner, mechanical soft. Will attempt regular breakfast this morning. He denies nausea, vomiting or abdominal pain, also denied fever/chills. Patient is eager to be discharged home and will plan to begin [facility] as an outpatient when following up with his GI doctor. Review of Systems Constitutional: Denies: chills, diaphoresis, fever, malaise. Cardiovascular: Denies: chest pain, orthopena. Respiratory: Denies: cough, short of breath. Gastrointestinal: Denies: abdominal pain, bloating, diarrhea, melena, nausea, bloody stool, vomiting. Objective Last 24 Hrs of Vital Signs/I&O Vital Signs Date Time Temp Pulse Resp B/P B/P Pulse O2 O2 Flow FiO2 Mean Ox Delivery Rate 04/15 0658 97.7 52 20 122/60 99 04/14 2245 98.5 65 18 140/70 98 Intake & Output 04/15 1600 04/15 0800 04/15 0000 Intake Total 200 400 Output Total Balance 200 400 Intake, IV 200 Intake, Oral 200 200 Number 1 Bowel Movements Physical Exam General Appearance: Alert, Oriented X3, Cooperative, No Acute Distress Cardiovascular: Regular Rate, Normal S1, Normal S2 Lungs: Clear to Auscultation, Normal Air Movement Abdomen: Normal Bowel Sounds, Soft, No Tenderness Assessment/Plan Assessment: 23-year-old male with a history of Crohn's disease presenting with acute flare of Crohn's. Problems: 1. Acute flareup of Crohn's disease 2. Possible SBO on CT, resolving with steroids Plan: followed by 40 daily mg for a week, followed by 30 mg daily per week, followed by 20 mg daily per week, and finally 10 mg daily for a week Full code Problem List: 1. Crohn disease Pain Ratin Pain Location: None Pain Goal: Pain 4 or less Pain Plan: Per pathway Tomorrow's Labs & Rationales: cbc & bep JordonMarco Antonio linder 04/15/18 1253: Attending MD Review Statement Attending Statement Attending MD Statement: examined this patient, discuss w/resident/PA/TITLE INVESTIGATOR, agreed w/resident/PA/TITLE INVESTIGATOR, discussed with family, reviewed EMR data (avail), discussed with nursing, discussed with case mgmt, reviewed images, amended to note Attending Assessment/Plan: 23 o/m with diagnosied crohn disease past year with established GI care at [place] with Dr Fuentes comes with acute excaerbation of crohn disease with possible small bowel obstrcution with marked imporvement on steorids. Patient is tolerating his diet. Follow GI and surgery recommendations which recommend no acute intervention. Anticipate discharge today on PO steroid taper with outpatient follow up with GI in established care.
--- NOTE | 2018-04-15 05:20 | Discharge Summary ---
Hospital Course Allergies: Coded Allergies: Milk Containing Products (Mild, DIARRHEA 04/14/18) gluten (Mild, ABDOMINAL CRAMPING 04/14/18) amoxicillin (UNKNOWN 04/13/18) lactase (From DAIRY AID) (Mild, GI DISTRESS 04/14/18) Discharge Instructions Medications at Discharge Discharge Medications: Continue taking these medications: Cholecalciferol (Vitamin D3) (Vitamin D) 1,000 UNIT TABLET 1 Tablet ORAL DAILY Comments: NOT GIVEN IN HOSPITAL Cyanocobalamin (Vitamin B-12) 1,000 MCG TABLET 1 Tablet ORAL DAILY Comments: NOT GIVEN IN HOSPITAL Ferrous Sulfate (Ferrous Sulfate) 325 MG (65 MG IRON) TABLET 1 Tablet ORAL DAILY Comments: NOT GIVEN IN HOSPITAL [MEDICAL MARIJUANA] Comments: NOT GIVEN IN HOSPITAL Start taking the following new medications: Prednisone (Prednisone) 10 MG TABLET 5 Tablet ORAL DAILY as needed for CROHN'S DISEASE Qty = 105 No Refills Instructions: 5 PILLS FOR 7 DAYS 4 PILLS FOR 7 DAYS 3 PILLS FOR 7 DAYS 2 PILLS FOR 7 DAYS 1 PILL FOR 7 DAYS Comments: Last Taken: 04/15/18 Time: 8 AM Attending MD Review Statement Documenting Attending: Jordon NELSON,Marco Antonio Other Findings: 23 o/m with diagnosied crohn disease past year with established GI care at [place] with Dr Fuentes comes with acute excaerbation of crohn disease with possible small bowel obstrcution with marked imporvement on steorids. Patient is tolerating his diet. Follow GI and surgery recommendations which recommend no acute intervention. Anticipate discharge today on PO steroid taper with outpatient follow up with GI in established care.
[2018-04-15 06:58] VITALS: BP 122/60
[2018-04-15 09:04] LABS: ABSOLUTE BASOPHIL COUNT 0 /CUMM (0.0-0.2); ABSOLUTE EOSINOPHIL COUNT 0 /CUMM (0.0-0.7); ABSOLUTE GRANULOCYTE CT 13.7 /CUMM (1.4-6.5); ABSOLUTE LYMPH COUNT 0.8 /CUMM (1.2-3.4); BASOPHIL % 0 % (0.0-2.0); EOSINOPHIL % 0 % (0-5); HEMATOCRIT 39.6 % (42-52); MEAN CORPUSCULAR HGB CONC 33.2 G/DL (33.0-37.0); MEAN CORPUSCULAR VOLUME 81.3 FL (80.0-94.0); MEAN PLATELET VOLUME 9.1 FL (7.4-10.4); PLATELET COUNT 302 /CUMM (130-400); RBC DISTRIBUTION WIDTH 14.1 % (11.5-14.5); RED BLOOD CELL CT 4.87 /CUMM (4.70-6.10); WHITE BLOOD CELL COUNT 15.5 /CUMM (4.8-10.8)
[2018-04-15 10:47] LABS: GRANULOCYTE % 88.6 % (42.2-75.2)
[2018-04-15] MEDS ORDERED: PREDNISONE10 M2 PO ×2 (11:20→11:25)
== END 2018-04-15 13:23 | DRG 386 ==
LOC: ERH 00:52 → ERHI 03:00 → 2NA 03:00 → ENRESERV 03:15 → 2NA 04:18 → ENPENDDIS 04-15 13:01 → 2NA 04-15 13:23
PROVIDERS: Internal Medicine Interventional Cardiology; Student in an Organized Health Care Education/Training Program
DX: K50.90 Crohn's disease, unspecified, without complications (principal); K56.609 Unspecified intestinal obstruction, unspecified as to partial versus complete obstruction; Z88.1 Allergy status to other antibiotic agents; F12.90 Cannabis use, unspecified, uncomplicated; Z79.52 Long term (current) use of systemic steroids; J45.909 Unspecified asthma, uncomplicated
CPT/HCPCS: 2NAP; 36592; 74177; 81003; 82436; 87015; 87040; 87045; 87899; 87899-59; 96374; 96375; 96376; J0131; J0696; J1720; J1885; J2405; J2920; J7042; J7060